=== PATIENT | female | born 1995 | race Caucasian/White ===

== ENCOUNTER 2016-09-21 22:43 | Emergency (ER) | payer OTHER ==
[~2016-09-21] VITALS: Ht 180.3 cm; Wt 132.1 kg
[~2016-09-21 22:43] MED LIST: DOXYCYCLINE 10100 MG PO; VOLTAREN 75 DR75 MG PO; [UNRECOGNIZED DRUG - REMARK]
[2016-09-21 23:53] LABS: BASO % 0.2 % (0.0-2.0); EOS # 0.1 (0.0-0.7); EOS % 0.9 % (0-4.0); GRAN # 4.1 (1.4-6.5); GRAN % 71.4 % (42.2-75.2); HEMATOCRIT 39.5 % (37.0-47.0); HEMOGLOBIN 12.8 g/dl (12.5-16.0); LYMPH # 1.1 (1.2-3.4); LYMPH % 19.6 % (20.0-51.0); MEAN CELL VOLUME 96 fl (80.0-100.0); MEAN CORPUSCULAR HEMOGLOBIN 31 pg (27.0-31.0); MEAN CORPUSCULAR HGB CONC 32 g/dl (33.0-37.0); MEAN PLATELET VOLUME 10.5 fl (7.4-10.4); MONO # 0.4 (0.1-0.6); MONO % 7.6 % (1.7-9.3); PLATELET COUNT 213 K/mm3 (130-400); RED BLOOD COUNT 4.12 M/mm3 (4.10-5.30); REDCELL DISTRIBUTION WIDTH-CV 13.3 % (11.5-14.5); WHITE BLOOD COUNT 5.8 K/mm3 (4.8-10.8)
[2016-09-22 01:39] VITALS: TEMP 100.3
[2016-09-22] MEDS ORDERED: DOXYCYCLINE 10100 MG PO (02:02)
[2016-09-22 02:16] VITALS: BP 128/76; PULSE 82
== END 2016-09-22 02:16 | disposition home or self-care (01) ==
LOC: COL.ER 22:43
PROVIDERS: Nurse Practitioner
DX: M79.604 Pain in right leg (principal)